=== PATIENT | male | born 1960 | race Caucasian/White ===

== ENCOUNTER → 2018-06-28 | Outpatient (CLI) | payer OTHER ==
[~2018-06-28] MED LIST: CYCL-259 PO; DIAZ5TAB PO; LISI-167 PO; MELO15TA24 PO; OXYC-307 PO; PSYL575P16 PO; SENN-31 PO
[2018-06-28 13:45] LABS: BASOPHILS # (AUTO) 0.03 x10^3/uL (0-0.1); BASOPHILS % (AUTO) 0 % (0-1); EOSINOPHILS # (AUTO) 0.27 x10^3/uL (0-0.4); EOSINOPHILS % (AUTO) 3 % (1-7); LYMPHOCYTES % (AUTO) 26 % (22-44); MD NO; MEAN CORPUSCULAR HEMOGLOBIN 30.2 pg (27.5-34.5); MEAN CORPUSCULAR HGB CONC 34.1 g/dL (33.2-36.2); MEAN CORPUSCULAR VOLUME 88.5 fL (81-97); MEAN PLATELET VOLUME 8.6 fL (7.4-10.4); MONOCYTES # (AUTO) 0.73 x10^3/uL (0.2-0.8); MONOCYTES % (AUTO) 7 % (2-9); NEUTROPHILS # (AUTO) 6.67 x10^3/uL (1.8-6.8); NEUTROPHILS % (AUTO) 64 % (42-75); PLATELET COUNT 241 x10^3/uL (130-400); RED BLOOD COUNT 5.38 x10^6/uL (4.38-5.82); RED CELL DISTRIBUTION WIDTH 13.1 % (9.4-14.8)
[2018-06-28 13:54] LABS: INTERNATIONAL NORMALIZED RATIO 1.01 (0.93-1.1); PROTHROMBIN TIME 10.7 Seconds (9.6-11.5)
[2018-06-28 13:56] LABS: ALBUMIN 4.5 g/dL (3.4-5.0); ANION GAP 7 mmol/L (5-15); CALCIUM 9.5 mg/dL (8.5-10.1); CHLORIDE 106 mmol/L (98-107)
[2018-06-28 13:59] LABS: ALANINE AMINOTRANSFERASE 26 U/L (12-78); ALKALINE PHOSPHATASE 84 U/L (45-117); BILIRUBIN,TOTAL 0.2 mg/dL (0.2-1.0); CREATININE 0.85 mg/dL (0.7-1.3); TOTAL PROTEIN 7.8 g/dL (6.4-8.2)
== END | disposition home or self-care (01) ==
LOC: STAR 12:40
PROVIDERS: ATTEND Neurological Surgery
DX: Z01.818 Encounter for other preprocedural examination (principal); M48.02 Spinal stenosis, cervical region; I10 Essential (primary) hypertension
CPT/HCPCS: 36415; 71046; 80053; 85025; 85610; 85730; 93005

== ENCOUNTER 2018-07-25 07:02 | Inpatient (IN) | payer OTHER ==
[~2018-07-25] VITALS: Ht 172.7 cm; Wt 89.0 kg
[~2018-07-25 07:02] MED LIST changes: +BACITRACIN 50,000 UNIT ONE; +BUPIVACAINE/PF-EPI 0.5% 1:200K ONE; +THROMBIN 5,000 UNIT VIAL TP ONE; +TRAM50TA2 PO
[2018-07-25 07:38] VITALS: BP 145/93
[2018-07-25] MEDS ORDERED: LACTATED RINGERS 1,000 ML IV SCH (07:45)
[2018-07-25] MEDS ORDERED: FENTANYL PF 250 MCG/5ML ONE (09:22)
[2018-07-25] MEDS ORDERED: MIDAZOLAM 1 MG/ML, 2ML ONE (09:22)
[2018-07-25] MEDS ORDERED: PROPOFOL 100 ML ONE (09:22)
[2018-07-25] MEDS ORDERED: DEXAMETHASONE 4 MG/ML, 1ML ONE ×3 (10:32)
[2018-07-25] MEDS ORDERED: CEFAZOLIN 1,000 MG ONE ×2 (10:35)
[2018-07-25] MEDS ORDERED: hydrALAzine 20 MG/ML, 1ML IV PRN (12:00)
[2018-07-25] MEDS ORDERED: LABETALOL 5MG/ML, 20ML IV PRN ×2 (12:00→15:30)
[2018-07-25] MEDS ORDERED: DIAZEPAM 5 MG/ML, 2ML IVPush PRN (12:00)
[2018-07-25] MEDS ORDERED: OXYcodone 5 MG/5 ML ORAL.SOL UDC PO PRN (12:00)
[2018-07-25] MEDS ORDERED: PROMETHAZINE 25 MG/ML, 1ML IV PRN (12:00)
[2018-07-25] MEDS ORDERED: ONDANSETRON 2MG/ML, 2ML IV PRN ×2 (12:00→15:30)
[2018-07-25] MEDS ORDERED: ACETAMINOPHEN 325 MG TABLET PO PRN (12:00)
[2018-07-25] MEDS ORDERED: MEPERIDINE/PF 25MG/0.5ML IVPush PRN (12:00)
[2018-07-25] MEDS ORDERED: PROPOFOL 50 ML ONE (12:20)
[2018-07-25] MEDS ORDERED: PROPOFOL 10 MG/ML, 20ML ONE (12:48)
[2018-07-25] MEDS ORDERED: SUCCINYLCHOLINE 20 MG/ML, 10ML ONE (12:48)
[2018-07-25] MEDS ORDERED: ROCURONIUM 10MG/ML,5ML ONE (12:48)
[2018-07-25] MEDS ORDERED: ONDANSETRON 2MG/ML, 2ML ONE (12:48)
[2018-07-25] MEDS ORDERED: FENTANYL PF 100 MCG/2ML ONE (13:15)
[2018-07-25] MEDS: FENTANYL PF 100 MCG/2ML IV PRN ×2 (13:17→13:29)
[2018-07-25] MEDS ORDERED: OXYcodone 5 MG/5 ML ORAL.SOL UDC ONE (13:31)
[2018-07-25] MEDS ORDERED: HYDROmorphone 2 MG/ML, 1ML ONE (13:31)
[2018-07-25] MEDS ORDERED: METHOCARBAMOL 750 MG TABLET ONE (13:31)
[2018-07-25] MEDS: HYDROmorphone 2 MG/ML, 1ML IVPush PRN ×3 (13:37→13:50)
[2018-07-25] MEDS ORDERED: METHOCARBAMOL 750 MG TABLET PO ONE (14:00)
[2018-07-25] MEDS ORDERED: HYDROmorphone 2 MG/ML, 1ML IM PRN (15:00)
[2018-07-25 15:06] VITALS: BP 124/82
[2018-07-25] MEDS ORDERED: DIPHENHYDRAMINE 50 MG/ML, 1ML IM PRN (15:30)
[2018-07-25] MEDS ORDERED: BISACODYL 10 MG SUPP PR PRN (15:30)
[2018-07-25] MEDS ORDERED: CYCLOBENZAPRINE 10 MG TABLET PO PRN (15:30)
[2018-07-25] MEDS ORDERED: PROMETHAZINE 25 MG/ML, 1ML IM PRN (15:30)
[2018-07-25] MEDS ORDERED: DIPHENHYDRAMINE 50 MG CAPSULE PO PRN (15:30)
[2018-07-25] MEDS ORDERED: DIPHENHYDRAMINE 50 MG/ML, 1ML IVPush PRN (15:30)
[2018-07-25] MEDS ORDERED: HYDROcodone/APAP 5/325 TABLET PO PRN (15:30)
[2018-07-25] MEDS ORDERED: MAGNESIUM HYDROXIDE 8%, 30ML UDC PO PRN (15:30)
[2018-07-25] MEDS: NS + 20MEQ KCL 1,000 ML IV SCH (17:38)
[2018-07-25] MEDS: CEFAZOLIN PMX 1GM/50ML 50 ML IVPB SCH (18:13)
[2018-07-25 20:27] VITALS: BP 140/83
[2018-07-25] MEDS: METHOCARBAMOL 750 MG TABLET PO PRN (21:29)
[2018-07-26 01:40] VITALS: BP 133/88
[2018-07-26] MEDS: CEFAZOLIN PMX 1GM/50ML 50 ML IVPB SCH (02:37)
[2018-07-26] MEDS: OXYcodone/APAP 5/325MG TABLET PO PRN ×3 (02:38→11:24)
[2018-07-26] MEDS: NS + 20MEQ KCL 1,000 ML IV SCH (04:00)
[2018-07-26] MEDS: METHOCARBAMOL 750 MG TABLET PO PRN (06:13)
[2018-07-26 07:00] VITALS: BP 138/82
[2018-07-26] MEDS ORDERED: SENNA/DOCUSATE TABLET PO SCH (09:00)
[2018-07-26] MEDS ORDERED: METH750T87 PO (10:54)
[2018-07-26] MEDS ORDERED: OXYC-302 PO (10:54)
[2018-07-26 12:10] VITALS: BP 136/80
== END 2018-07-26 13:55 | disposition home or self-care (01) | DRG 472 ==
LOC: ORIP 07:02 → 4NOR 14:49 → DCLOUNGE 07-26 13:45
PROVIDERS: ADMIT Neurological Surgery; ATTEND Neurological Surgery
PROC: 0RT30ZZ Resection of Cervical Vertebral Disc, Open Approach (ICD-10-PCS; 2018-07-25)
PROC: 4A11X4G Monitoring of Peripheral Nervous Electrical Activity, Intraoperative, External Approach (ICD-10-PCS; 2018-07-25)
PROC: 0RG20A0 Fusion of 2 or more Cervical Vertebral Joints with Interbody Fusion Device, Anterior Approach, Anterior Column, Open Approach (ICD-10-PCS; principal; 2018-07-25 10:30)
DX: M48.02 Spinal stenosis, cervical region (principal); M47.12 Other spondylosis with myelopathy, cervical region; M54.12 Radiculopathy, cervical region; I10 Essential (primary) hypertension; G43.909 Migraine, unspecified, not intractable, without status migrainosus; Z88.2 Allergy status to sulfonamides
CPT/HCPCS: 36415; 72040; 86850; 86900; 95938; 95941; C1713; C1776; G0378; J0690; J1100; J1170; J2250; J2270; J2405; J2704; J3010; J3480; J0330; J7120